=== PATIENT | male | born 1940 | race Caucasian/White ===

== ENCOUNTER → 2018-08-29 | Outpatient (REF) ==
[~2018-08-29] MED LIST: ASPI81TA85 PO; ATEN25TA PO; FLOM0.4C39 PO; HYDR500C3 PO; PANT40TA3 PO; ZOCO20TA PO
== END ==
LOC: M LAB LCGH 10:53
PROVIDERS: ATTEND Nurse Practitioner Family
DX: D48.9 Neoplasm of uncertain behavior, unspecified (principal)

== ENCOUNTER → 2018-10-10 | Outpatient (REF) | payer MEDICARE, OTHER ==
[~2018-10-10] MED LIST changes: +PRESCAP PO
== END ==
LOC: M LAB LCGH 14:40
PROVIDERS: ATTEND Physician Assistant
DX: L57.0 Actinic keratosis (principal)

== ENCOUNTER → 2018-11-14 | Outpatient (REF) | payer MEDICARE, OTHER | LOC: M LAB REF 13:52 | PROVIDERS: ATTEND Physician Assistant | DX: C44.622 Squamous cell carcinoma of skin of right upper limb, including shoulder (principal) ==

== ENCOUNTER → 2019-06-08 | Outpatient (REF) | LOC: M LAB LCGH 10:51 | PROVIDERS: ATTEND Physician Assistant | DX: L57.0 Actinic keratosis (principal) ==

== ENCOUNTER → 2019-08-24 | Outpatient (REF) | payer MEDICARE, OTHER | LOC: M LAB REF 18:39 | PROVIDERS: ATTEND Dermatology | DX: D04.4 Carcinoma in situ of skin of scalp and neck (principal); L57.0 Actinic keratosis | CPT/HCPCS: 11102; 88305; G0463 ==

== ENCOUNTER → 2019-09-06 | Outpatient (REF) | payer MEDICARE, OTHER | LOC: M LAB REF 09:48 | PROVIDERS: ATTEND Dermatology | DX: L90.5 Scar conditions and fibrosis of skin (principal) ==

== ENCOUNTER → 2019-10-27 | Outpatient (REF) | payer MEDICARE, OTHER ==
[~2019-10-27] MED LIST changes: +ASPI1CHW3 PO; -ASPI81TA85 PO; +ASPI81TA86 PO; +PANT40TA29 PO; -PANT40TA3 PO
== END ==
LOC: M LAB REF 12:38
PROVIDERS: ATTEND Physician Assistant
DX: T14.8XXA Other injury of unspecified body region, initial encounter (principal); Y92.9 Unspecified place or not applicable
CPT/HCPCS: 87070; 87077; 87186; G0463

== ENCOUNTER → 2020-01-19 | Outpatient (REF) | payer MEDICARE, OTHER | LOC: M LAB REF 17:56 | PROVIDERS: ATTEND Physician Assistant | DX: D04.62 Carcinoma in situ of skin of left upper limb, including shoulder (principal) ==

== ENCOUNTER → 2024-07-04 | Outpatient (CLI) | payer MEDICARE, OTHER ==
[~2024-07-04] MED LIST changes: +ACYC200C8 PO; +AMOX875T2; +ASPI-655 PO; -ASPI1CHW3 PO; +B-12100021 PO; +BENZ200C70 PO; +BUSP5TA; +COVI100V IM; +CYPR4TAB36 PO; +FERR325T3 PO; +FERR325T82 PO; +FLUC-1 PO; +LEVO1TAB39 PO; +LEVO50TA5 PO; +LIDOCAINE 1% MDV 20ML VIAL As Ordered ONE; +PARO30TA4; +SIMV-253 PO; +SIMV20TA22; -ZOCO20TA PO; +[UNRECOGNIZED DRUG - CODE] PO
[2024-07-04 08:15] VITALS: TEMP 98.1
[2024-07-04 08:40] LABS: BASO # 0.3 10^3/uL (0.0-0.2); BASO % 1.1 % (0.0-1.0); EOS # 0.9 10^3/uL (0.0-0.5); EOS % 3.4 % (0.0-3.0); HEMATOCRIT 48.6 % (42.0-52.0); HEMOGLOBIN 13.9 g/dl (13.5-17.5); LYMPH # 0.8 10^3/uL (1.5-5.0); LYMPH % 3.1 % (24.0-44.0); MEAN CORPUSCULAR HGB CONC 28.6 g/dl (32.0-36.5); MEAN CORPUSCULAR VOLUME 73.5 fl (80.0-96.0); MONO # 1.2 10^3/uL (0.0-0.8); MONO % 4.4 % (2.0-8.0); NEUTROPHILS # 22.5 10^3/uL (1.5-8.5); PLATELET COUNT, AUTOMATED 741 10^3/uL (150-450); RED BLOOD COUNT 6.61 10^6/uL (4.30-6.10); WHITE BLOOD COUNT 26.2 10^3/uL (4.0-10.0)
[2024-07-04 09:16] VITALS: BP 129/64; O2SAT 96
== END ==
LOC: M IRPRO 08:01
PROVIDERS: ATTEND Internal Medicine Medical Oncology
DX: D75.1 Secondary polycythemia (principal)

== ENCOUNTER → 2024-07-21 | Outpatient (REF) | payer MEDICARE, OTHER ==
[~2024-07-21] MED LIST changes: +BUPR15TASR PO; -LIDOCAINE 1% MDV 20ML VIAL As Ordered ONE
[2024-07-28 04:27] LABS: CALPROTECTIN STOOL 121 mcg/g (<50)
[2024-07-28 19:18] LABS: PANCREATIC ELASTASE STOOL 40 mcg/g (>200)
== END ==
LOC: M LAB REF 11:30
PROVIDERS: ATTEND Physician Assistant Medical
DX: R19.7 Diarrhea, unspecified (principal)

== ENCOUNTER → 2024-08-18 | Outpatient (REF) | payer MEDICARE, OTHER | LOC: M SFHCDERM 17:52 | PROVIDERS: ATTEND Nurse Practitioner Family | DX: D49.2 Neoplasm of unspecified behavior of bone, soft tissue, and skin (principal); D04.9 Carcinoma in situ of skin, unspecified; C44.91 Basal cell carcinoma of skin, unspecified ==

== ENCOUNTER 2024-09-12 09:51 | Day surgery (SDC) | payer MEDICARE, OTHER ==
[~2024-09-12] VITALS: Ht 182.9 cm; Wt 80.7 kg
[~2024-09-12 09:51] MED LIST changes: +ACYC1TAB PO; +ASPI81CH2 PO; +BUSP5TA PO; +IRON65TA2 PO; +JAKA10TA PO; +LEVO75TA4 PO; +PARO40TA2 PO; +SIMV20TA22 PO
[2024-09-12] MEDS ORDERED: propofoL 200 MG/20 ML VIAL As Ordered ONE (11:29)
[2024-09-12] MEDS ORDERED: fentaNYL 100 MCG/2 ML INJECTION As Ordered ONE (11:32)
[2024-09-12 12:15] VITALS: TEMP 97.7
[2024-09-12 12:34] VITALS: BP 112/65; O2SAT 97
[2024-09-13] MEDS ORDERED: JAKA10TA PO (12:06)
== END 2024-09-12 12:39 | disposition home or self-care (01) ==
LOC: M OPP 09:51
PROVIDERS: ATTEND Internal Medicine Gastroenterology
DX: K57.30 Diverticulosis of large intestine without perforation or abscess without bleeding (principal); K64.8 Other hemorrhoids; D50.9 Iron deficiency anemia, unspecified; K44.9 Diaphragmatic hernia without obstruction or gangrene; K29.70 Gastritis, unspecified, without bleeding; K31.89 Other diseases of stomach and duodenum; Z79.899 Other long term (current) drug therapy
CPT/HCPCS: 43239; 45378; 88305; J3010

== ENCOUNTER → 2024-09-27 | Outpatient (CLI) | payer MEDICARE, OTHER ==
[~2024-09-27] MED LIST changes: -FLOM0.4C39 PO; +PROHANCE 279.3MG/ML 15ML VIAL As Ordered ONE; +PROHANCE 279.3MG/ML 5ML VIAL As Ordered ONE; +TAMS-18 PO
== END ==
LOC: M RAD 15:42
PROVIDERS: ATTEND Physician Assistant Medical
DX: K86.81 Exocrine pancreatic insufficiency (principal); R16.1 Splenomegaly, not elsewhere classified; K76.89 Other specified diseases of liver; N28.1 Cyst of kidney, acquired; J98.11 Atelectasis; R91.8 Other nonspecific abnormal finding of lung field
CPT/HCPCS: 74183; A9576